=== PATIENT | male | born 1935 | race African-American/Black ===

== ENCOUNTER 2017-11-20 10:09 | Emergency (ER) | payer OTHER, MEDICAID ==
[~2017-11-20] VITALS: Ht 172.7 cm; Wt 67.0 kg
[~2017-11-20 10:09] MED LIST: GABAPENTIN; HYDROCHLOROTHIAZIDE; MOEXIPRIL
[2017-11-20] MEDS ORDERED: MORPHINE SULFATE 4 MG/ML CPJ (NOT FOR IM USE) IV STA (11:32)
[2017-11-20 12:10] LABS: BASOPHILS % 0.5 % (0.0-2.0); EOSINOPHILS % 0.1 % (0.0-5.0); HEMOGLOBIN. 8.5 g/dL (14.0-18.0); MEAN CORPUSCULAR HEMOGLOBIN 27.2 pg (28.0-32.0); MEAN CORPUSCULAR VOLUME 83.7 fL (80.0-94.0); MEAN PLATELET VOLUME 9.4 fl (7.4-10.4); MONOCYTES % 6.2 % (2.0-8.0); NEUTROPHILS % 81.2 % (40.0-76.0); PLATELET 237 x1000/uL (130-400); RED BLOOD CELL COUNT 3.11 mill/uL (4.7-6.1); RED CELL DISTRIBUTION WIDTH 12.7 % (11.6-14.6)
[2017-11-20 12:16] LABS: CHLORIDE 103 mEq/L (98-107)
[2017-11-20 12:17] LABS: INR 1.2; PROTHROMBIN TIME 11.7 sec (9.1-11.1)
[2017-11-20] MEDS ORDERED: MORPHINE SULFATE 2 MG/ML CPJ (NOT FOR IM USE) IV ONE (13:30)
[2017-11-20] MEDS ORDERED: SODIUM CHLORIDE 0.9% 1,000 ML IV ONE (14:45)
[2017-11-20] MEDS ORDERED: IOHEXOL-350 100 ML BOTTLE ONE ×2 (14:47→16:18)
[2017-11-20 17:17] VITALS: BP 138/82
== END 2017-11-20 17:17 | disposition home or self-care (01) ==
LOC: ER 11:55
DX: M54.6 Pain in thoracic spine (principal); I10 Essential (primary) hypertension; E03.9 Hypothyroidism, unspecified
CPT/HCPCS: 36415; 71045; 71275; 74174; 80053; 83880; 84484; 85025; 85610; 93005; 96374; 96376; 99285; J2270; J7030; Q9967

== ENCOUNTER 2021-08-24 13:20 | Emergency (ER) | payer OTHER, MEDICAID ==
[~2021-08-24] VITALS: Ht 172.7 cm; Wt 63.0 kg
[2021-08-24 13:33] VITALS: BP 171/99
[2021-08-24 16:16] LABS: BASOPHILS % 0.4 % (0.0-2.0); EOSINOPHILS % 0.9 % (0.0-5.0); HEMATOCRIT. 37.3 % (42.0-52.0); LYMPHOCYTES % 21.7 % (20.0-50.0); MEAN CORPUSCULAR HEMOGLOBIN 27.6 pg (28.0-32.0); MEAN CORPUSCULAR VOLUME 85.6 fL (80.0-94.0); MEAN PLATELET VOLUME 9.2 fl (7.4-10.4); MONOCYTES % 7.5 % (2.0-8.0); NEUTROPHILS % 69.5 % (40.0-76.0); PLATELET 187 x1000/uL (130-400); RED BLOOD CELL COUNT 4.36 mill/uL (4.7-6.1); RED CELL DISTRIBUTION WIDTH 13.5 % (11.6-14.6)
[2021-08-24 16:21] LABS: CHLORIDE 104 mEq/L (98-107)
== END 2021-08-24 18:58 | disposition left against medical advice (07) ==
LOC: ER 14:37
DX: R07.9 Chest pain, unspecified (principal); I10 Essential (primary) hypertension; E03.9 Hypothyroidism, unspecified
CPT/HCPCS: 36415; 71045; 80053; 83880; 84484; 85025; 93005; 99285